=== PATIENT | female | born 1990 ===

== ENCOUNTER 2017-01-17 19:39 | Emergency (ER) | payer OTHER ==
[2017-01-17 19:56] VITALS: BP 136/76; PULSE 116; RESP 20; TEMP 97.9; O2SAT 100
--- NOTE | 2017-01-17 20:22 | ED PDOC ---
HPI: CCC, URI, Sore Throat Time Seen by Provider: 01/17/17 20:06 Chief Complaint (Nursing): Cough, Cold, Congestion Chief Complaint (Provider): cough History Per: Patient History/Exam Limitations: no limitations Have you had recent travel within the past 21 days to any of the following countries: [place], [place], [place] or [place]?: No Onset/Duration Of Symptoms: Days (x 1 ) Current Symptoms Are (Timing): Still Present Sick Contacts (Context): None Additional Complaint(s): Leanne Ivan is a 26 year old female, with no previous medical history, who presents to the ED complaints of a dry cough since yesterday. Patient states she was wheezing earlier which resolved spontaneously. Patient denies any throat pain, fever, chills, chest pain or shortness of breath. PMD: none provided Past Medical History Reviewed: Historical Data, Nursing Documentation, Vital Signs Vital Signs: Last Vital Signs Temp 97.9 F 01/17/17 19:53 Pulse 116 H 01/17/17 19:53 Resp 20 01/17/17 19:53 BP 136/76 01/17/17 19:53 Pulse Ox 100 01/17/17 20:25 - Medical History PMH: No Chronic Diseases - Family History Family History: States: Unknown Family Hx - Home Medications Home Medications: Ambulatory Orders Medication Instructions Recorded Atropine Sulfate/Diphenoxyla 2 tab PO Q6H PRN #30 tab 05/26/14 [Lomotil 0.025 mg-2.5 mg] Ciprofloxacin HCl [Cipro] 500 mg PO BID #20 tab 05/26/14 Ondansetron [Zofran] 4 mg PO Q8H PRN #30 tab 05/26/14 Ciprofloxacin HCl [Cipro] 500 mg PO BID #20 tab 05/09/15 Naproxen [Naprosyn] 500 mg PO Q12H #20 tab 05/09/15 Albuterol HFA [Ventolin HFA 90 1 puff IH Q4 PRN #1 inh 08/28/16 mcg/actuation (8 g)] Azithromycin [Zithromax] 250 mg PO DAILY #4 tab 08/28/16 Prednisone 50 mg PO DAILY #4 tablet 08/28/16 Albuterol HFA [Ventolin HFA 90 1 puff IH Q6H PRN #1 inhaler 01/17/17 mcg/actuation (8 g)] Azithromycin [Zithromax] 250 mg PO DAILY #6 tab 01/17/17 - Allergies Allergies/Adverse Reactions: Allergies Allergy/AdvReac Type Severity Reaction Status Date / Time No Known Allergies Allergy Verified 08/27/16 23:14 Review of Systems ROS Statement: Except As Marked, All Systems Reviewed And Found Negative Constitutional: Negative for: Fever, Chills Cardiovascular: Negative for: Chest Pain Respiratory: Positive for: Cough. Negative for: Shortness of Breath, Sputum Physical Exam - Reviewed Nursing Documentation Reviewed: Yes Vital Signs Reviewed: Yes - Physical Exam Appears: Positive for: Well, Non-toxic, No Acute Distress Head Exam: Positive for: ATRAUMATIC, NORMAL INSPECTION, NORMOCEPHALIC Skin: Positive for: Normal Color, Warm, Dry Eye Exam: Positive for: Normal appearance ENT: Positive for: Normal ENT Inspection Neck: Positive for: Normal, Painless ROM Cardiovascular/Chest: Positive for: Regular Rate, Rhythm Respiratory: Positive for: CNT, Normal Breath Sounds Back: Positive for: Normal Inspection Extremity: Positive for: Normal ROM Neurologic/Psych: Positive for: Alert, Oriented - ECG O2 Sat by Pulse Oximetry: 100 (RA) Pulse Ox Interpretation: Normal Medical Decision Making Medical Decision Making: Initial Impression: cough Initial plan: * physical exam * disposition Scribe Attestation: Documented by Kayce Staton, acting as a scribe for Kimberly Baker PA-C. Provider Scribe Attestation: All medical record entries made by the Scribe were at my direction and personally dictated by me. I have reviewed the chart and agree that the record accurately reflects my personal performance of the history, physical exam, medical decision making, and the department course for this patient. I have also personally directed, reviewed, and agree with the discharge instructions and disposition. Disposition - Clinical Impression Clinical Impression: Cough - Patient ED Disposition Is Patient to be Admitted: No Counseled Patient/Family Regarding: Diagnosis, Need For Followup, Rx Given - Disposition Disposition: Routine/Home Disposition Time: 21:36 Condition: STABLE Prescriptions: Albuterol HFA [Ventolin HFA 90 mcg/actuation (8 g)] 1 puff IH Q6H PRN #1 inhaler PRN Reason: Shortness Of Breath Azithromycin [Zithromax] 250 mg PO DAILY #6 tab Instructions: Upper Respiratory Infection (ED)
== END 2017-01-17 20:40 | disposition home or self-care (01) ==
LOC: H.ER 19:39
DX: R05 Cough (principal)

== ENCOUNTER 2017-04-12 15:36 | Emergency (ER) | payer OTHER ==
--- NOTE | 2017-04-12 16:14 | ED PDOC ---
HPI: Female Pain Time Seen by Provider: 04/12/17 16:07 Chief Complaint (Nursing): Female Genitourinary Chief Complaint (Provider): vaginal discharge History Per: Patient Additional Complaint(s): Patient states that she has had a yeast infection for the past 3 days not improved with over the counter monistat. Patient denies any abdominal pain and denies any concern for STD. No fever or chills. She is currently sexually active with 1 partner and uses protection. Patient has history of frequent yeast infections. Past Medical History Reviewed: Historical Data, Nursing Documentation, Vital Signs Vital Signs: Last Vital Signs Temp 97.8 F 04/12/17 15:51 Pulse 90 04/12/17 15:51 Resp 16 04/12/17 15:51 BP 123/76 04/12/17 15:51 Pulse Ox 97 04/12/17 15:51 - Medical History PMH: No Chronic Diseases - Surgical History Surgical History: No Surg Hx - Family History Family History: States: No Known Family Hx - Living Arrangements Living Arrangements: With Family - Social History Current smoker - smoking cessation education provided: No Alcohol: None Drugs: Denies - Home Medications Home Medications: Ambulatory Orders Medication Instructions Recorded Atropine Sulfate/Diphenoxyla 2 tab PO Q6H PRN #30 tab 05/26/14 [Lomotil 0.025 mg-2.5 mg] Ciprofloxacin HCl [Cipro] 500 mg PO BID #20 tab 05/26/14 Ondansetron [Zofran] 4 mg PO Q8H PRN #30 tab 05/26/14 Ciprofloxacin HCl [Cipro] 500 mg PO BID #20 tab 05/09/15 Naproxen [Naprosyn] 500 mg PO Q12H #20 tab 05/09/15 Albuterol HFA [Ventolin HFA 90 1 puff IH Q4 PRN #1 inh 08/28/16 mcg/actuation (8 g)] Azithromycin [Zithromax] 250 mg PO DAILY #4 tab 08/28/16 Prednisone 50 mg PO DAILY #4 tablet 08/28/16 Albuterol HFA [Ventolin HFA 90 1 puff IH Q6H PRN #1 inhaler 01/17/17 mcg/actuation (8 g)] Azithromycin [Zithromax] 250 mg PO DAILY #6 tab 05/05/17 Fluconazole [Diflucan] 150 mg PO ONCE #1 tab 04/12/17 Metronidazole [Metrogel] 60 gm VAG HS #1 packet 04/12/17 - Allergies Allergies/Adverse Reactions: Allergies Allergy/AdvReac Type Severity Reaction Status Date / Time No Known Allergies Allergy Verified 04/12/17 15:51 Review of Systems ROS Statement: Except As Marked, All Systems Reviewed And Found Negative Constitutional: Negative for: Fever Gastrointestinal: Negative for: Abdominal Pain Genitourinary Female: Positive for: Vaginal Discharge. Negative for: Dysuria, Frequency, Incontinence, Hematuria, Pelvic Pain Physical Exam - Reviewed Nursing Documentation Reviewed: Yes Vital Signs Reviewed: Yes - Physical Exam Appears: Positive for: Well, Non-toxic, No Acute Distress Skin: Negative for: Rash Eye Exam: Positive for: Normal appearance Cardiovascular/Chest: Positive for: Regular Rate, Rhythm Respiratory: Positive for: Normal Breath Sounds Gastrointestinal/Abdominal: Positive for: Soft. Negative for: Tenderness, Distended, Guarding, Rebound Pelvic Exam: Positive for: External Exam Normal, Speculum Exam Normal, Discharge (thick white vaginal discharge). Negative for: Blood, Cervicitis, Tender W/Cervical Motion, Tender Adnexa, Tender Uterus Extremity: Positive for: Normal ROM Neurologic/Psych: Positive for: Alert, Oriented - Laboratory Results Urine POC: Negative Urine dip results: Positive for: Leukocyte Esterase (trace). Negative for: Blood, Nitrate, Ketones, Glucose, Bilirubin, Protein - ECG O2 Sat by Pulse Oximetry: 97 Pulse Ox Interpretation: Normal Medical Decision Making Medical Decision Makin26 year old with vaginal discharge Plan: Urine Urine dip CHL/GC culture Urine culture Rx diflucan and metrogel given. Patient was referred to clinic for follow up. Disposition - Clinical Impression Clinical Impression: Vaginal candidiasis, Vaginal discharge - Patient ED Disposition Is Patient to be Admitted: No Counseled Patient/Family Regarding: Studies Performed, Diagnosis, Need For Followup, Rx Given - Disposition [facility] Disposition: Routine/Home Disposition Time: 16:38 Condition: STABLE Additional Instructions: Take rx meds as directed. Follow up in 2-3 days with clinic. Prescriptions: Fluconazole [Diflucan] 150 mg PO ONCE #1 tab Metronidazole [Metrogel] 60 gm VAG HS #1 packet Instructions: Vulvovaginal Candidiasis (ED), Vaginitis (ED) Forms: [employer] ([place])
[2017-04-12 17:01] VITALS: BP 128/76; PULSE 78; RESP 18; TEMP 97.6; O2SAT 98
== END 2017-04-12 17:01 | disposition home or self-care (01) ==
LOC: H.ER 15:36
DX: B37.3 Candidiasis of vulva and vagina (principal)